=== PATIENT | female | born 1955 | race Caucasian/White ===

== ENCOUNTER → 2024-01-24 07:34 | Outpatient (REF) | payer MEDICARE, SELFPAY | LOC: HWRAD 07:34 | PROVIDERS: ATTENDING PHYSICIAN Physician Assistant Medical | DX: R10.2 Pelvic and perineal pain (principal) | CPT/HCPCS: 76830; 76856 ==

== ENCOUNTER → 2024-10-25 07:55 | Outpatient (REF) | payer MEDICARE, SELFPAY | LOC: WDC 07:55 | PROVIDERS: ATTENDING PHYSICIAN Physician Assistant Medical | DX: M81.0 Age-related osteoporosis without current pathological fracture (principal); Z12.31 Encounter for screening mammogram for malignant neoplasm of breast | CPT/HCPCS: 77063; 77067; 77080 ==